=== PATIENT | male | born 1955 | race Native Hawaiian/Other Pacific Islander ===

== ENCOUNTER 2018-05-21 06:44 | Day surgery (SDC) | payer BC ==
[2018-05-19 09:17] VITALS: BMI 26.6
[~2018-05-21 06:44] MED LIST: HYDROmorphone 0.5 MG/0.5 ML SYRINGE IVP PRN; LACTATED RINGERS 1,000 ML IV SCH; LIDOCAINE 1% 20 ML VIAL (10MG/ML) FOR IV START INTRADERMA PRN; MIDAZOLAM 2 MG/2 ML VIAL IV PRN
[2018-05-21 07:12] VITALS: RESP 16; TEMP 98.1
[2018-05-21] MEDS ORDERED: PROPOFOL 10 MG/ML 20 ML VIAL IV ONE (07:53)
--- NOTE | 2018-05-21 07:59 | P.GSHP ---
History of Present Illness H&P Date: 05/21/18 Chief Complaint: Screening colonoscopy This is a 62-year-old male who presents today for screening colonoscopy. He denies any significant GI complaints. Presents today for screening colonoscopy. His last colonoscopy was over 20 years ago. Past Medical History Past Medical History: Hypertension Additional Past Medical History / Comment(s): gout, History of Any Multi-Drug Resistant Organisms: None Reported Past Surgical History: Orthopedic Surgery Additional Past Surgical History / Comment(s): rt shoulder rotator cuff, Past Anesthesia/Blood Transfusion Reactions: No Reported Reaction Smoking Status: Current some day smoker - Past Family History Mother Family Medical History: No Reported History Medications and Allergies Home Medications Medication Instructions Recorded Confirmed Type Lisinopril [Zestril] 5 mg PO DAILY 05/19/18 05/21/18 History amLODIPine BESYLATE [Norvasc] 5 mg PO QAM 05/19/18 05/21/18 History Allergies Allergy/AdvReac Type Severity Reaction Status Date / Time No Known Allergies Allergy Verified 05/19/18 09:10 Surgical - Exam Vital Signs Temp Pulse Resp BP Pulse Ox 98.1 F 60 16 149/80 98 05/21/18 07:08 05/21/18 07:08 05/21/18 07:08 05/21/18 07:08 05/21/18 07:08 - General well developed, no distress - Eyes PERRL - ENT normal pinna - Neck no masses - Respiratory normal expansion - Cardiovascular Rhythm: regular - Abdomen Abdomen: soft, non tender Assessment and Plan Assessment: We'll perform screening colonoscopy.
--- NOTE | 2018-05-21 08:13 | P.OP ---
Date of Procedure: 05/21/18 Preoperative Diagnosis: Screening colonoscopy Postoperative Diagnosis: Transverse colon polyp Procedure(s) Performed: Colonoscopy Anesthesia: MAC Surgeon: Calin Leavitt Pathology: other (Transverse colon polyp) Condition: stable Disposition: PACU Description of Procedure: Patient's placed on the endoscopy table in the lateral position. He received IV sedation. Digital rectal exam was performed which revealed no ebonized. The flexor colonoscope was then placed patient anus passed throughout the entire colon. The ileocecal valve sutures. The cecum, ascending colon appeared normal. In the transverse colon there is a small sessile polyp. This removed the forcep. Scope was withdrawn remainder the descending and sigmoid colon appeared normal. Scope was brought back the rectum and this appeared normal. Scope was withdrawn for patient.
[2018-05-21 08:42] VITALS: BP 151/81; PULSE 63
== END 2018-05-21 08:55 | disposition home or self-care (01) ==
LOC: ORWHC2ENDO 06:44
PROVIDERS: ATTEND Surgery
DX: Z12.11 Encounter for screening for malignant neoplasm of colon (principal); D12.3 Benign neoplasm of transverse colon; I10 Essential (primary) hypertension; M10.9 Gout, unspecified; F17.200 Nicotine dependence, unspecified, uncomplicated; Z79.899 Other long term (current) drug therapy
CPT/HCPCS: 88305; 45380; J2704

== ENCOUNTER → 2021-12-27 | Outpatient (CLI) | payer MEDICARE ==
--- NOTE | 2021-12-29 03:26 | MR ---
EXAMINATION TYPE: MR shoulder LT wo con DATE OF EXAM: 12/27/2021 COMPARISON: None HISTORY: Left shoulder pain for 4 weeks due to fall. Multiplanar multiecho imaging of the left shoulder without contrast. There is moderate shoulder joint effusion. There is fluid around the biceps tendon. Subscapularis ten don is intact. The glenoid jose luis appear intact. No evidence of a fracture. There is large rotator cuf f tear with retraction of the supraspinatus tendon. There is subdeltoid effusion. There is spurring a t the AC joint. IMPRESSION: Very large rotator cuff tear with retraction of the supraspinatus tendon. Large joint effusion.
== END | disposition home or self-care (01) ==
LOC: RADMRIMAIN 10:55
PROVIDERS: ATTEND Orthopaedic Surgery
DX: S46.012A Strain of muscle(s) and tendon(s) of the rotator cuff of left shoulder, initial encounter (principal); W19.XXXA Unspecified fall, initial encounter

== ENCOUNTER → 2022-01-25 | Outpatient (CLI) | payer MEDICARE ==
--- NOTE | 2022-01-25 11:02 | CA ---
Transthoracic Echo Report Name: Quique Smith Age: 66 Gender: M : 1955 Exam Date: 01/25/2022 09:12 Exam Location: [facility] Ht (in): 66 Wt (lb): 170 Ordering Physician: Alex Muniz DO Attending/Referring Phys: Alex Muniz DO Hand Blocker Kath Merino, [facility] Procedure CPT: Indications: I10 R07.89 Z01.818 Cardiac Hx: Technical Quality: Good Contrast 1: Total Dose (mL): Contrast 2: Total Dose (mL): MEASUREMENTS (Male / Female) Normal Values 2D ECHO LV Diastolic Diameter PLAX 4.3 cm 4.2 - 5.9 / 3.9 - 5.3 cm LV Systolic Diameter PLAX 3.0 cm IVS Diastolic Thickness 1.4 cm 0.6 - 1.0 / 0.6 - 0.9 cm LVPW Diastolic Thickness 1.4 cm 0.6 - 1.0 / 0.6 - 0.9 cm LV Relative Wall Thickness 0.6 RV Internal Dim ED PLAX 3.2 cm LVOT Diameter 2.2 cm LA Systolic Diameter LX 4.1 cm 3.0 - 4.0 / 2.7 - 3.8 cm LA Volume 44.9 cm??? 18 - 58 / 22 - 52 cm??? M-MODE Aortic Root Diameter MM 3.9 cm MV E Point Septal Separation 1.3 cm AV Cusp Separation MM 2.2 cm DOPPLER AV Peak Velocity 125.4 cm/s AV Peak Gradient 6.3 mmHg MV Area PHT 2.5 cm??? Mitral E Point Velocity 60.5 cm/s Mitral A Point Velocity 70.2 cm/s Mitral E to A Ratio 0.9 MV Deceleration Time 309.6 ms MV E' Velocity 3.8 cm/s Mitral E to MV E' Ratio 16.0 TR Peak Velocity 206.0 cm/s TR Peak Gradient 17.0 mmHg Right Ventricular Systolic Press 22.0 mmHg FINDINGS Left Ventricle Left ventricular ejection fraction is estimated at 55-60 %. Left ventricular cavity size normal. Moderate concentric left ventricular hypertrophy. Right Ventricle Normal right ventricular size and function. Right ventricular systolic pressure within normal limits. Right Atrium Normal right atrial size. Left Atrium Normal left atrial size. No evidence for an atrial septal defect. Mitral Valve Mitral annular calcification. Trace mitral regurgitation. No mitral stenosis, regurgitation or prolapse. Aortic Valve Trileaflet aortic valve. No aortic valve stenosis or regurgitation. Focal thickening of the aortic valve cusps. Tricuspid Valve Mild tricuspid regurgitation. Pulmonic Valve Structurally normal pulmonic valve. No pulmonic regurgitation. Pericardium Normal pericardium. Aorta Moderate aortic dilatation at the level of the sinuses of valsalva 41 mm CONCLUSIONS #1. Left ventricular size is normal with preserved LV function. #2. Mild tricuspid regurgitation. #3. Aortic root dilatation measuring about 1.1 cm Previewed by: Dr. Edith Loza MD (Electronically Signed) Final Date: 25 January 2022 11:01
--- NOTE | 2022-01-25 11:47 | CA ---
Exercise Stress Test Report Name: Quique Smith Exam Date: 01/25/2022 10:34 Exam Location: [facility] Stress Ht (in): 66 Wt (lb): 170 BSA: 1.87 Ordering Phys: Alex Muniz DO Referring Phys: Alex Muniz DO Technologist: Matthew Tavares Age: 66 Gender: M : 1955 Procedure CPT: Indications: I10 R07.89 Z01.818 ICD-10 Codes: Patient History: Abnormal EKG, Hypertension Medications: Meds past 24 hrs: Pretest Chest Pain: STRESS TEST Brandon Protocol Exercise Duration (min:sec): 04:[address] Depressions (mm): Angina Score: Sal Score: Resting HR (bpm): 67 Peak HR (bpm): 135 Resting BP (mmHg): 110 / 81 Peak BP (mmHg): 171 / 74 MPHR: 153 Target HR: 130 % MPHR: 88 METS: 7.1 Total Dose: Peak Dose: Atropine: Double Product: 50819 BP Response: Stress Termination: Reached target heart rate Stress Symptoms: No chest pain or symptoms Stress Summary: ECG ANALYSIS Resting ECG: Sinus rhythm with right bundle-branch block Stress ECG: Sinus tachycardia with a right bundle branch block without any significant changes from baseline CONCLUSIONS #1. Ruby stress test. #2. Baseline EKG showed right bundle-branch block. #3. Patient did not experience any chest pain. #4. No arrhythmias noted Dr. Edith Loza MD (Electronically Signed) Final Date: 25 January 2022 11:46
--- NOTE | 2022-01-25 16:55 | NM ---
EXAMINATION TYPE: NM stress cardiolite complete DATE OF EXAM: 01/25/2022 COMPARISON: 10/23/2015 HISTORY: 66-year-old male I10, R07.89, Z01.818. Abnormal EKG. TECHNIQUE: After the intravenous administration of 10.2 mCi Tc 99m Sestamibi - Rest images obtained 55 minutes post injection. The patient exercised using a LUCY protocol and 1 minute prior to peak exercise was injected with 26.4 mCi Tc 99m Sestamibi - Stress images obtained 25 minutes post injecti on. FINDINGS: Targeted heart rate 130 BPM. Heart rate achieved during the study 135 BPM. Total exercise time 4 luis daniel marjorie 30 seconds. Heart target heart rate was achieved during performance of the study. Review of stres s and rest SPECT images demonstrates no distinct perfusion abnormality. Gated analysis shows normal wall motion with an estimated left ventricular ejection fraction of 64 %. TID is calculated normal a t 0.89. IMPRESSION: No scintigraphic evidence for reversible ischemia
== END | disposition home or self-care (01) ==
LOC: RADNMMAIN 08:40
PROVIDERS: ATTEND Family Medicine
DX: Z01.818 Encounter for other preprocedural examination (principal); I10 Essential (primary) hypertension; I08.3 Combined rheumatic disorders of mitral, aortic and tricuspid valves
CPT/HCPCS: 93017; 93306; 78452; A9500

== ENCOUNTER → 2022-01-31 | Outpatient (CLI) | payer MEDICARE ==
[2022-01-31 13:04] LABS: Basophils # (A) 0.1 k/uL (0-0.2); Basophils % (A) 1 %; Eosinophils # (A) 0.1 k/uL (0-0.7); Eosinophils % (A) 1 %; Lymphocytes % (A) 16 %; MCH 34.1 pg (25.0-35.0); MCHC 34.1 g/dL (31.0-37.0); MCV 99.7 fL (80.0-100.0); Macrocytosis Slight; Monocytes # (A) 0.5 k/uL (0-1.0); Monocytes % (A) 8 %; Neutrophils # (A) 4.3 k/uL (1.3-7.7); Neutrophils % (A) 70 %; Platelet Count 233 k/uL (150-450); RBC 4.71 m/uL (4.30-5.90); RDW 14.8 % (11.5-15.5); WBC 6.1 k/uL (3.8-10.6)
[2022-01-31 13:05] LABS: African American GFR (CKD) >90 (>60 ml/min/1.73 sqM); Anion Gap 7 mmol/L; Blood Urea Nitrogen 7 mg/dL (9-20); Calcium 9.3 mg/dL (8.4-10.2); Carbon Dioxide 32 mmol/L (22-30); Chloride 99 mmol/L (98-107); Glucose 97 mg/dL (74-99); Non-African American GFR(CKD) 90 (>60 ml/min/1.73 sqM); Potassium 4.4 mmol/L (3.5-5.1); Sodium 138 mmol/L (137-145)
== END | disposition home or self-care (01) ==
LOC: LABWHC1 11:52
PROVIDERS: ATTEND Family Medicine
DX: Z01.812 Encounter for preprocedural laboratory examination (principal); I10 Essential (primary) hypertension
CPT/HCPCS: 36415; 80048; 85025

== ENCOUNTER 2022-02-01 05:56 | Day surgery (SDC) | payer MEDICARE ==
--- NOTE | 2022-01-31 10:48 | HP ---
HISTORY AND PHYSICAL CHIEF COMPLAINT: Left shoulder pain. HISTORY OF PRESENT ILLNESS: Patient is a 66-year-old retired [id number] gentleman who presents with left shoulder pain after an injury 11/26/2021. He fell down his basement stairs landing on his shoulder. He notes pain, weakness, and soreness ever since. It has been bothering him with any overhead motion along with significantly at night. He denies previous problems. PAST MEDICAL HISTORY: Significant for hypertension. PAST SURGICAL HISTORY: Significant for right shoulder arthroscopy. CURRENT MEDICATIONS: Amlodipine b.i.d., Bisoprolol, lisinopril and Tylenol. ALLERGIES: He denies drug allergies. FAMILY HISTORY: Significant for lupus, rheumatoid arthritis, stroke, hypertension. SOCIAL HISTORY: Significant for social alcohol use. REVIEW OF SYSTEMS: 16-point review of systems otherwise reviewed and is noncontributory. PHYSICAL EXAMINATION: On examination, the patient is approximately 5 foot 6, 170 pounds of mesomorphic habitus. HEENT exam is nonfocal. Neck is supple. On examination of his left shoulder, he has mild anterior swelling. He is tender about the anterior subacromial space and bicipital groove. He has moderate crepitus. Active range of motion: Forward elevation 90 degrees, external rotation, arm at side 50 degrees, internal rotation to L2. Motor strength 4- over 5 for external rotation with the arm at side, 3+ over 5 for abduction. Impingement test, Neer tests, and Speed test are positive. His distal neurovascular exam appears intact in left upper extremity. MRI report left shoulder 12/27/2021 shows a large retracted rotator cuff tear without definite muscular atrophy. IMPRESSION: Acute left rotator cuff tear. RECOMMENDATIONS: I talked to the patient at length regarding his condition along with treatment options. At this point, he has profound weakness and pain after this acute injury. After thorough discussion, he opts to proceed with surgery. We will plan to proceed with arthroscopic evaluation with probable subacromial decompression and rotator cuff repair. We will consider biceps tenotomy if significant bicipital pathology is noted. We will likely perform that as an outpatient procedure. MMODL / IJN: [id number] /
[2022-01-31 11:11] VITALS: BMI 27.4
[2022-02-01] MEDS ORDERED: ONDANSETRON 4 MG/2 ML VIAL ONE (06:44)
[2022-02-01] MEDS ORDERED: LACTATED RINGERS 1,000 ML IV ONE ×3 (07:06→09:02)
[2022-02-01] MEDS ORDERED: ONDANSETRON 4 MG/2 ML VIAL IVP ONE ×2 (07:06→07:37)
[2022-02-01] MEDS ORDERED: DEXAMETHASONE SOD PHOSPHATE 4 MG/ML 1 ML VIAL IVP ONE (07:06)
[2022-02-01] MEDS ORDERED: MIDAZOLAM 2 MG/2 ML VIAL IVP ONE (07:11)
[2022-02-01] MEDS ORDERED: DEXAMETHASONE SOD PHOSPHATE 4 MG/ML 1 ML VIAL IV ONE (07:37)
[2022-02-01] MEDS ORDERED: MIDAZOLAM 2 MG/2 ML VIAL IV PRN (07:37)
[2022-02-01] MEDS ORDERED: LIDOCAINE 1% (10MG/ML) FOR IV START INTRADERMA PRN (07:37)
[2022-02-01] MEDS ORDERED: LACTATED RINGERS 1,000 ML IV SCH (07:37)
[2022-02-01] MEDS ORDERED: HYDROmorphone 0.5 MG/0.5 ML SYRINGE IVP PRN (07:37)
[2022-02-01] MEDS ORDERED: ROPIVACAINE 5 MG/ML 30 ML VIAL ONE (07:40)
[2022-02-01] MEDS ORDERED: DEXAMETHASONE SOD PHOSPHATE 4 MG/ML 1 ML VIAL ONE (07:40)
[2022-02-01] MEDS ORDERED: PHENYLEPHRINE-0.9% NACL SYG 1,000 MCG/10 ML SYRINGE ONE (07:40)
[2022-02-01] MEDS ORDERED: KETOROLAC 15 MG/ML 1 ML VIAL ONE (07:40)
[2022-02-01] MEDS ORDERED: PROPOFOL 10 MG/ML 20 ML VIAL IV ONE (07:40)
[2022-02-01] MEDS ORDERED: ROCURONIUM 10 MG/ML (5 ML VIAL) IV ONE (07:40)
[2022-02-01] MEDS ORDERED: LIDOCAINE 2% INJ 20 MG/ML (2 ML VIAL) ONE (07:40)
[2022-02-01] MEDS ORDERED: SUCCINYLCHOLINE CHLORIDE 100 MG/5 ML SYR IV ONE (07:40)
[2022-02-01] MEDS ORDERED: GLYCOPYRROLATE 0.2 MG/ML 2 ML VIAL ONE (07:40)
[2022-02-01] MEDS ORDERED: NEOSTIGMINE 1 MG/ML 10 ML VIAL ONE (07:40)
[2022-02-01] MEDS ORDERED: EPINEPHrine (PF) 1 ML in SODIUM CHLORIDE 0.9% IRRIGATIO 3,000 ML IRRIGATION ONE ×8 (07:45)
--- NOTE | 2022-02-01 09:56 | P.OP ---
Date of Procedure: 02/01/22 Preoperative Diagnosis: Left large rotator cuff tearretracted Postoperative Diagnosis: Same in addition to high-grade partial-thickness tear intra-articular portion long head of the biceps Procedure(s) Performed: Left shoulder arthroscopic subacromial decompression/biceps tenotomy/rotator cuff repair Implants: Arthrex 4.75 mm swivel lock anchor 3, 5.5 mm swivel lock anchor 1 Anesthesia: LEILAA, regional Surgeon: Sunday Watkins Irrigating Pump Operator #1: Saji Marsh Estimated Blood Loss (ml): 10 Pathology: none sent Condition: stable Disposition: PACU Indications for Procedure: The patient's 66-year-old male who presents with left shoulder pain after a recent injury. Upon evaluation and by MRI he was noted significant rotator cuff tear with retraction. A discussion of the risks and benefits of operative intervention versus conservative measures made with patient. He opted to proceed with surgery. Operative risks to include infection, neurovascular injury, development of blood clots, possible tendon rerupture, possible posto perative stiffness and need for subsequent procedures was discussed. Informed consent was obtained. Operative Findings: As below Description of Procedure: The patient was brought to the operating room, and after induction of general anesthesia was placed in a beachchair position. A preoperative interscalene block was placed for postoperative analgesia. I examined the left shoulder. There was no gross block to passive motion or gross glenohumeral instability. The left upper extremity was prepped and draped in normal fashion. The bony o utlines the acromion, distal clavicle, and coracoid process were outlined with a skin marker. The glenohumeral joint was inflated with 50 mL of saline utilizing a spinal needle from posterior approach. A posterior portal was made through a 5 mm skin incision 1 cm medial and inferior to the posterior lateral border time. A blunt trocar was used to easily into the joint. Diagnostic arthroscopy was performed. An anterior portal was made just lateral to the coracoid process entering the joint above the subscapularis tendon. The subscapularis tendon appeared to be intact. Anterior labrum was intact. The inferior recess was inspected. The posterior labrum was intact. There was a high-grade partial- thickness tear of the long head of the biceps involving interarticular portion. It was elected to proceed with release at this point. This was released from the superior labrum with electrocautery and was allowed to retract to the bicipital groove. On inspection the rotator cuff, a large retracted tear involving the supraspinatus and infraspinatus was noted retracted almost level the glenoid. The arthroscope was placed into the subacromial space. A lateral portal was made 2 centimeters inferior to the anterior lateral border of the acromion. The rotator cuff was then mobilized with multiple traction sutures. This was then brought back to the greater tuberosity. The soft tissue on the undersurface of the acromion was debrided with a motorized shaver and electrocautery clearly defining the anterior medial and lateral borders as well as the distal clavicle. An anterior inferior acromioplasty was performed with a motorized luh starting anterolateral, then extending this posteriorly, then extending this medially. I converted to a flat acromion and this was verified in the posterior and lateral viewing portals. The greater tuberosity was lightly decorticating with a shaver down to a bleeding bony surface. An accessory superior lateral portals made just off the lateral edge of the acromion for anchor placement. 2 anchors were then placed just off the articular surface with the appropriate starting awl. 4.75 mm anchors preloaded with #2 fiber tape were placed. Good purchase was obtained. These fiber tapes were then passed the rotator cuff with a scorpion suture passer. A lateral row was created crisscrossing these tapes. A 4.75 mm and 5.5 mm swivel lock anchor was then placed laterally crisscrossing these sutures compressing the tissue. Good purchase was obtained. Final arthroscopic view showed adequate compression at the footprint. The anterior portion of the rotator cuff was retracted and not repairable. The arthroscope was then removed. The portals were closed with simple 3-0 nylon sutures. A sterile dressing was applied in addition to an abductor brace. The patient was then awoken from general anesthesia and transferred to recovery room in good condition. Blood loss was estimated at 10 mL. No complications were incurred. Sponge and needle counts were correct in the case. Saji WILSON assisted and the major components of the case to include arm positioning, anchor placement, and rotator cuff repair.
[2022-02-01 10:08] VITALS: TEMP 97.1
[2022-02-01 11:01] VITALS: RESP 18
[2022-02-01 11:41] VITALS: BP 126/86; PULSE 53
--- NOTE | 2022-02-02 18:38 | P.ANPRN ---
Procedure Note - Anesthesia - Nerve Block Performed Left Interscalene Single Time Out Performed: Yes Date of Procedure: 02/01/22 Procedure Start Time: 07:10 Procedure Stop Time: 07:14 Location of Patient: PreOp Indication: Acute Post-Operative Pain, Requested by Surgeon Sedation Type: Sedate with meaningful contact maintained Preparation: Sterile Prep Position: Supine Needle Types: Pajunk Needle Gauge: 21 Ultrasound used to visualize needle placement: Yes Ultrasound used to observe medication spread: Yes Blood Aspirated: No Pain Paresthesia on Injection Noted: No Resistance on Injection: Normal Image Stored and Saved: Yes Events: Uneventful and Well Tolerated (ROPI .5% 20CC PLUS DEXAMETHASONE 4MG)
== END 2022-02-01 11:57 | disposition home or self-care (01) ==
LOC: OR 05:56
PROVIDERS: ATTEND Orthopaedic Surgery
DX: S46.012A Strain of muscle(s) and tendon(s) of the rotator cuff of left shoulder, initial encounter (principal); W10.9XXA Fall (on) (from) unspecified stairs and steps, initial encounter; I10 Essential (primary) hypertension; F17.200 Nicotine dependence, unspecified, uncomplicated; Z98.890 Other specified postprocedural states; Z82.61 Family history of arthritis; Z82.3 Family history of stroke; Z82.49 Family history of ischemic heart disease and other diseases of the circulatory system; Z82.69 Family history of other diseases of the musculoskeletal system and connective tissue; Z79.899 Other long term (current) drug therapy
CPT/HCPCS: 64415; 76942; 29826; 29827; C1713 ×3; C1894; J2250; J1100; J2710; J0690; J2405; J0171; J2795; J1885; J2370; J0330; J2704; J2001

== ENCOUNTER 2022-08-09 12:46 | Emergency (ER) | payer MEDICARE ==
[2022-08-09 12:52] VITALS: TEMP 98.5
[2022-08-09] MEDS ORDERED: ACETAMINOPHEN TAB 500 MG TAB PO STA (13:02)
--- NOTE | 2022-08-09 13:11 | ED ---
Fall HPI - General Chief Complaint: Fall Stated Complaint: fall - lt side pain Time Seen by Provider: 08/09/22 12:53 Source: patient, family, RN notes reviewed Mode of arrival: ambulatory - History of Present Illness Initial Comments: This is a 66-year-old male who presents to the emergency department for a fall. 2 days ago, he was on his roof above the garage. States that he tripped and stumbled over some wire, and subsequently fell on the ground. He was walking around when his saw him, however the fall itself was not witnessed. It is unclear if he had any loss of consciousness. He is not on any blood thinners. Currently complaining of pain in the lower back, more so on the left side and pain with inhalation. However, the extent of his injuries is not entirely clear. His family believes that the fall was from about 10 feet. His states that over the last couple of days he has started to get weaker than normal and is complaining of increased pain. Denies any fevers, chills, sore throat, cough, chest pain, palpitations, abdominal pain, nausea, vomiting, diarrhea, or headaches. MD Complaint: fall Onset/Timin -: days(s) Fall Witnessed: no Place Fall Occurred: home Loss of Consciousness: unsure Prolonged Down Time?: unclear Symptoms Prior to Fall: none - Related Data Home Medications Medication Instructions Recorded Confirmed amLODIPine BESYLATE [Norvasc] 5 mg PO QAM 05/19/18 02/01/22 lisinopriL [Zestril] 5 mg PO DAILY 05/19/18 02/01/22 Bisoprolol-Hctz 5-6.25 mg [Ziac 1 tab PO DAILY 01/31/22 02/01/22 5-6.25 MG] Previous Rx's Medication Instructions Recorded HYDROcodone/APAP 7.5-325MG [[place] 1 each PO Q6HR PRN #28 tab 02/01/22 7.5] Allergies Allergy/AdvReac Type Severity Reaction Status Date / Time No Known Allergies Allergy Verified 08/09/22 12:52 Review of Systems ROS Statement: Those systems with pertinent positive or pertinent negative responses have been documented in the HPI. ROS Other: All systems not noted in ROS Statement are negative. Past Medical History Past Medical History: Hypertension Additional Past Medical History / Comment(s): gout, History of Any Multi-Drug Resistant Organisms: None Reported Past Surgical History: Orthopedic Surgery Additional Past Surgical History / Comment(s): rt shoulder rotator cuff, Past Anesthesia/Blood Transfusion Reactions: No Reported Reaction Past Psychological History: No Psychological Hx Reported Smoking Status: Never smoker Past Alcohol Use History: Daily Past Drug Use History: None Reported - Past Family History Mother Family Medical History: No Reported History General Exam Limitations: no limitations General appearance: alert, in no apparent distress Head exam: Present: atraumatic, normocephalic, normal inspection Respiratory exam: Present: normal lung sounds bilaterally. Absent: respiratory distress, wheezes, rales, rhonchi, stridor Cardiovascular Exam: Present: regular rate, normal rhythm, normal heart sounds. Absent: systolic murmur, diastolic murmur, rubs, gallop, clicks GI/Abdominal exam: Present: other (Somewhat firm) Extremities exam: Present: normal inspection Back exam: Present: normal inspection, tenderness (Lower lumbar spine, spinal and paraspinal) Neurological exam: Present: alert, oriented X3, CN II-XII intact Psychiatric exam: Present: normal affect, normal mood Skin exam: Present: warm, dry, intact, normal color. Absent: rash Course Vital Signs 08/09/22 08/09/22 08/09/22 12:49 15:02 15:44 Temperature 98.5 F Pulse Rate 72 74 59 L Respiratory 20 18 18 Rate Blood Pressure 94/60 85/52 95/61 O2 Sat by Pulse 99 95 95 Oximetry Medical Decision Making - Medical Decision Making This is a 66-year-old male who presents to the emergency department for a fall. Was pt. sent in by a medical professional or institution? @ -No Did you speak to anyone other than the patient for history? @ -His and son Did you review nursing and triage notes? @ -Agree, accurate with regards to the patient's symptoms. Were old charts reviewed? @ -No Differential Diagnosis? @ -Abdominal trauma such as SMA rupture, bowel perforation, rib fractures, cervical, thoracic, or lumbar spine fractures, hip fracture, and pelvic fracture. This is not meant to be an all inclusive list. CT interpreted by me (1pt min.)? @ -My interpretation of the computed tomography scan reveals an area of swelling consistent with a hematoma in the duodenal region. There also appears to be left-sided rib and left-sided lumbar transverse process fractures. Computed tomography scan of the brain and C-spine reveal no acute fractures or intracranial hemorrhage. Computed tomography scan of the bilateral femurs reveals no acute fractures or dislocations. What testing was considered but not performed? (CT, X-rays, U/S, labs)? Why? @ -Originally considered getting x-rays, however given that this was a fall from 10 feet and not witnessed, and because the patient is having some difficulty describing his pain, the decision was made to instead get a computed tomography scan from the brain down to the femurs for better evaluation. What meds were considered but not given? Why? @ -I offered pain medication aside from the Tylenol, however the patient declined. Did you discuss the management of the patient with other professionals? @ -I spoke with on-call general surgery, Dr. Leavitt, who advised that the patient needs to be transferred to a facility with gastroenterology available due to the duodenal hematoma. Did you reconcile home meds? @ -No Was smoking cessation discussed for >3mins.? @ -No Was critical care preformed (if so, how long)? @ -No Were there social determinants of health that impacted care today? How? (Homelessness, low income, unemployed, alcoholism, drug addiction, transportation, low edu. Level, literacy, decrease access to med. care, longterm, rehab)? @ -No Was there de-escalation of care discussed even if they declined? (Discuss DNR or withdrawal of care, Hospice)? @ -No What co-morbidities impacted this encounter? (DM, HTN, Smoking, COPD, CAD, Cancer, CVA, Hep., AIDS, mental health diagnosis, sleep apnea, morbid obesity)? @ -Hypertension Was patient admitted / discharged? @ -In discussion with the patient and his , because this is a fall from several feet and was unwitnessed, computed tomographys scan of the brain/C- spine, chest, abdomen, pelvis, and bilateral femurs were obtained. Tylenol administered for pain. Multiple acute injuries were noted on the computed tomography scan of the chest, abdomen, and pelvis. There is a 10 x 10 cm duodenal/periduodenal hematoma. There are also lumbar left-sided transverse process fractures of L1 through L4 and left rib fractures of 9 through 11. I spoke with Dr. Leavitt, on-call general surgery. He advised that because we do not have gastroenterology available, the patient will need to be transferred out for the duodenal/periduodenal hematoma. Baseline lab work was obtained based on these findings. He does have leukocytosis with a lower hemoglobin level of 11.7. However, he started to become hypotensive with a blood pressure in the high 80s systolically. He was subsequently given a liter bolus of normal saline. Patient accepted as a transfer to [facility] for non-activated trauma. Drug Therapy requiring intensive monitoring for toxicity (Heparin, Nitro, Insulin, Cardizem)? @ -None Were any procedures done? @ -None Diagnosis/symptom? @ -Duodenal/periduodenal hematoma Acute, or Chronic, or Acute on Chronic? @ -Acute Uncomplicated (without systemic symptoms) or Complicated (systemic symptoms)? @ -Complicated, patient is feeling weak, and his states that he seems somewhat more drowsy and lethargic than normal. Side effects of treatment? @ -Patient transfer to [facility] for treatment. Exacerbation, Progression, or Severe Exacerbation] @ -Not applicable Poses a threat to life or bodily function? @ -Yes, can lead to obstruction and perforation. Diagnosis/symptom? @ -Left-sided rib fractures Acute, or Chronic, or Acute on Chronic? @ -Acute Uncomplicated (without systemic symptoms) or Complicated (systemic symptoms)? @ -Complicated, he is experiencing difficulty breathing due to the pain. Side effects of treatment? @ -Patient transfer to [facility] for treatment. Exacerbation, Progression, or Severe Exacerbation] @ -Not applicable Poses a threat to life or bodily function? @ -Causes difficulty with breathing, which can subsequently lead to pneumonia. Diagnosis/symptom? @ -Left-sided transverse process fractures of lumbar spine. Acute, or Chronic, or Acute on Chronic? @ -Acute Uncomplicated (without systemic symptoms) or Complicated (systemic symptoms)? @ -Not exhibiting any systemic symptoms at this time. Side effects of treatment? @ -Transferred to [facility] for treatment. Exacerbation, Progression, or Severe Exacerbation] @ -Not applicable Poses a threat to life or bodily function? @ -Limits bodily function in terms of pain. This case was discussed in detail with the attending ED physician. Presentation, findings, and treatment plan discussed in detail as well. - Lab Data Result diagrams: 08/09/22 14:32 08/09/22 14:32 Lab Results 08/09/22 08/09/22 08/09/22 Range/Units 14:32 14:32 14:32 WBC 15.4 H (3.8-10.6) k/uL RBC 3.37 L (4.30-5.90) m/uL Hgb 11.7 L (13.0-17.5) gm/dL Hct 33.5 L (39.0-53.0) % MCV 99.6 (80.0-100.0) fL MCH 34.9 (25.0-35.0) pg MCHC 35.1 (31.0-37.0) g/dL RDW 11.9 (11.5-15.5) % Plt Count 242 (150-450) k/uL MPV 9.4 Neutrophils % 81 % Lymphocytes % 9 % Monocytes % 8 % Eosinophils % 1 % Basophils % 0 % Neutrophils # 12.5 H (1.3-7.7) k/uL Lymphocytes # 1.3 (1.0-4.8) k/uL Monocytes # 1.2 H (0-1.0) k/uL Eosinophils # 0.1 (0-0.7) k/uL Basophils # 0.1 (0-0.2) k/uL PT 10.7 (9.0-12.0) sec INR 1.0 (<1.2) APTT 31.3 H (22.0-30.0) sec Sodium 132 L (137-145) mmol/L Potassium 4.8 (3.5-5.1) mmol/L Chloride 98 (98-107) mmol/L Carbon Dioxide 24 (22-30) mmol/L Anion Gap 10 mmol/L BUN 42 H (9-20) mg/dL Creatinine 1.50 H (0.66-1.25) mg/dL Est GFR (CKD-EPI)AfAm 55 (>60 ml/min/1.73 sqM) Est GFR (CKD-EPI)NonAf 48 (>60 ml/min/1.73 sqM) Glucose 99 (74-99) mg/dL Calcium 9.4 (8.4-10.2) mg/dL Total Bilirubin 2.1 H (0.2-1.3) mg/dL AST 75 H (17-59) U/L ALT 51 H (4-49) U/L Alkaline Phosphatase 97 (38-126) U/L Total Protein 7.9 (6.3-8.2) g/dL Albumin 4.4 (3.5-5.0) g/dL Blood Type Blood Type Recheck Bld Type Recheck Status Antibody Screen Spec Expiration Date 08/09/22 Range/Units 14:32 WBC (3.8-10.6) k/uL RBC (4.30-5.90) m/uL Hgb (13.0-17.5) gm/dL Hct (39.0-53.0) % MCV (80.0-100.0) fL MCH (25.0-35.0) pg MCHC (31.0-37.0) g/dL RDW (11.5-15.5) % Plt Count (150-450) k/uL MPV Neutrophils % % Lymphocytes % % Monocytes % % Eosinophils % % Basophils % % Neutrophils # (1.3-7.7) k/uL Lymphocytes # (1.0-4.8) k/uL Monocytes # (0-1.0) k/uL Eosinophils # (0-0.7) k/uL Basophils # (0-0.2) k/uL PT (9.0-12.0) sec INR (<1.2) APTT (22.0-30.0) sec Sodium (137-145) mmol/L Potassium (3.5-5.1) mmol/L Chloride (98-107) mmol/L Carbon Dioxide (22-30) mmol/L Anion Gap mmol/L BUN (9-20) mg/dL Creatinine (0.66-1.25) mg/dL Est GFR (CKD-EPI)AfAm (>60 ml/min/1.73 sqM) Est GFR (CKD-EPI)NonAf (>60 ml/min/1.73 sqM) Glucose (74-99) mg/dL Calcium (8.4-10.2) mg/dL Total Bilirubin (0.2-1.3) mg/dL AST (17-59) U/L ALT (4-49) U/L Alkaline Phosphatase (38-126) U/L Total Protein (6.3-8.2) g/dL Albumin (3.5-5.0) g/dL Blood Type O Positive Blood Type Recheck No Previous Record Bld Type Recheck Status CABO Indicated Antibody Screen NEGATIVE Spec Expiration Date 08/12/20222331 - Radiology Data Radiology results: report reviewed, image reviewed Disposition Clinical Impression: Hematoma of duodenum, Fracture of transverse process of lumbar vertebra, Mult iple fractures of ribs, left side, initial encounter for closed fracture Disposition: OTHER INSTITUTION NOT DEFINED Referrals: Alex Muniz Jr, [Primary Care Provider] - 1-2 days - Out of Hospital Transfer - Req. Specs Out of Hospital Transfer - Requested Specifics: Other Emergency Center ([facility])
--- NOTE | 2022-08-09 13:54 | CT ---
EXAMINATION TYPE: CT ChestAbdPelvis wo con DATE OF EXAM: 08/09/2022 COMPARISON: None HISTORY: fall off roof, back pain CT DLP: 874.[address] of the chest abdomen and pelvis was performed. The lack of contrast does limit evaluati on. Chest: LUNGS: There is no evidence for pneumothorax. The lungs are clear and free of focal contusion or ate lectasis. No pleural effusion. Parenchymal scarring noted within the upper lobes. MEDIASTINUM: Thoracic aorta is of normal caliber without CT evidence to suggest traumatic induced ao rtic injury. No mediastinal fluid or blood. No pericardial fluid or cardia abnormality. HILAR STRUCTURES: No evidence for mass. No hilar adenopathy is appreciated. OTHER: No significant abnormality. CT ABDOMEN AND PELVIS FINDINGS: LIVER/GB: No focal laceration, contusion or subcapsular hemorrhage. No calcified gallstones. No s pace occupying hepatic lesion. Biliary tree is of normal caliber. PANCREAS: No evidence for transection. No inflammation. No distinct mass. SPLEEN: No focal laceration, contusion or subcapsular hemorrhage. ADRENALS: No hemorrhage. No nodule. No thickening. KIDNEYS/BLADDER: No focal laceration, contusion or subcapsular hemorrhage. No hydronephrosis. No n ephrolithiasis. No distinct renal mass. BOWEL: There is a hematoma noted adjacent to the descending and transverse duodenum measuring 10.7 x 10.7 cm. There is associated stranding. SMA appears to be grossly intact. GENITAL ORGANS: No gross abnormality. LYMPH NODES: No greater than 1cm abdominal or pelvic lymph nodes are appreciated. AORTA: No traumatic aortic injury visualized. OSSEOUS STRUCTURES: Lumbar left-sided transverse process fractures extending from L1 through L4. Left -sided rib fractures of 9, 10 and 11. OTHER: No evidence for hemoperitoneum. IMPRESSION: 1. No evidence for pneumothorax or thoracic aortic injury. 2. Duodenal/periduodenal hematoma as discussed above. 3.Lumbar left-sided transverse process fractures extending from L1 through L4. Left-sided rib fractur es of 9, 10 and 11.
--- NOTE | 2022-08-09 13:57 | CT ---
EXAMINATION TYPE: CT brain dara dubon DATE OF EXAM: 08/09/2022 COMPARISON: None HISTORY: fall, no LOC CT DLP: 2758.[address] of the brain was performed. The ventricles, basal cisterns and sulci overlying the cerebral convexities demonstrate mild enlargem ent. There is no evidence for intracranial hemorrhage or sulcal effacement. There is decreased attenuatio n about the periventricular white matter and deep white matter of both cerebral hemispheres, compatib le with chronic small vessel ischemia. No mass effects are seen. If symptoms persist consider MRI. Osseous calvarium is intact. IMPRESSION: 1. Age related atrophic and chronic small vessel ischemic change without acute intracranial process seen at this time. CT Cervical Spine: Unenhanced CT of the cervical spine was performed with bone and soft tissue window settings submitted . Coronal and sagittal reconstruction is obtained. There is normal alignment and prevertebral soft tissues. No evidence for acute cervical fracture . Scattered degenerative disc disease and spondylosis. Biapical scarring. IMPRESSION: 1. No evidence for acute fracture or subluxation of the cervical spine.
[2022-08-09] MEDS ORDERED: LIDOCAINE 5% PATCH TOPICAL SCH (14:00)
--- NOTE | 2022-08-09 14:15 | CT ---
EXAMINATION TYPE: CT femur LT wo con DATE OF EXAM: 08/09/2022 COMPARISON: None HISTORY: fall off roof, back pain, Automated exposure control for dose reduction was used. Unenhanced CT of the left femur was bone and soft tissue window settings submitted. Imaging was performed at a separate workstation. FINDINGS: No evidence for fracture or dislocation. Soft tissues appear intact. Vascular calcifications identifi ed. IMPRESSION: NEGATIVE
--- NOTE | 2022-08-09 14:24 | CT ---
EXAMINATION TYPE: CT femur RT wo con DATE OF EXAM: 08/09/2022 COMPARISON: None HISTORY: fall off roof, back pain, Automated exposure control for dose reduction was used. Unenhanced CT of the right femur was performe d. Bone and soft tissue window settings are submitted. 3-D reconstruction is obtained at a separate w orkstation. FINDINGS: There is no fracture or dislocation seen. Soft tissues are grossly unremarkable. Joint spaces are wel l-preserved. IMPRESSION: NEGATIVE
[2022-08-09 14:49] LABS: Basophils # (A) 0.1 k/uL (0-0.2); Basophils % (A) 0 %; Eosinophils # (A) 0.1 k/uL (0-0.7); Eosinophils % (A) 1 %; HCT 33.5 % (39.0-53.0); HGB 11.7 gm/dL (13.0-17.5); Lymphocytes # (A) 1.3 k/uL (1.0-4.8); Lymphocytes % (A) 9 %; MCH 34.9 pg (25.0-35.0); MCHC 35.1 g/dL (31.0-37.0); MCV 99.6 fL (80.0-100.0); Mean Platelet Volume 9.4; Monocytes # (A) 1.2 k/uL (0-1.0); Monocytes % (A) 8 %; Neutrophils # (A) 12.5 k/uL (1.3-7.7); Neutrophils % (A) 81 %; Platelet Count 242 k/uL (150-450); RBC 3.37 m/uL (4.30-5.90); RDW 11.9 % (11.5-15.5); WBC 15.4 k/uL (3.8-10.6)
[2022-08-09] MEDS ORDERED: SODIUM CHLORIDE 0.9% 1,000 ML IV STA (14:58)
[2022-08-09 15:00] LABS: Albumin 4.4 g/dL (3.5-5.0); Calcium 9.4 mg/dL (8.4-10.2); Potassium 4.8 mmol/L (3.5-5.1); Total Bilirubin 2.1 mg/dL (0.2-1.3); Total Protein 7.9 g/dL (6.3-8.2)
[2022-08-09 15:01] LABS: Partial Thromboplastin Time 31.3 sec (22.0-30.0); Prothrombin Time 10.7 sec (9.0-12.0)
[2022-08-09 15:03] VITALS: RESP 18
[2022-08-09] MEDS ORDERED: HYDROmorphone 0.5 MG/0.5 ML SYRINGE IVP STA (15:38)
[2022-08-09] MEDS ORDERED: fentaNYL (PF) 50 MCG/ML 2 ML AMP IVP ONE (15:40)
[2022-08-09 15:45] VITALS: BP 95/61; PULSE 59
== END 2022-08-09 15:58 | disposition other institution (70) ==
LOC: EC 12:46
DX: S32.019A Unspecified fracture of first lumbar vertebra, initial encounter for closed fracture (principal); S32.029A Unspecified fracture of second lumbar vertebra, initial encounter for closed fracture; S32.039A Unspecified fracture of third lumbar vertebra, initial encounter for closed fracture; S32.049A Unspecified fracture of fourth lumbar vertebra, initial encounter for closed fracture; S32.059A Unspecified fracture of fifth lumbar vertebra, initial encounter for closed fracture; S22.42XA Multiple fractures of ribs, left side, initial encounter for closed fracture; S36.420A Contusion of duodenum, initial encounter; I10 Essential (primary) hypertension; W18.09XA Striking against other object with subsequent fall, initial encounter; Y93.01 Activity, walking, marching and hiking; Y92.094 Garage of other non-institutional residence as the place of occurrence of the external cause
CPT/HCPCS: 36415; 86900; 86901; 80053; 85025; 85610; 85730; 86850; 72125; 70450; 71250; 74176; 73700 ×2; 99284; 96374; 96375; 96361; J3010

== ENCOUNTER → 2022-11-06 | Outpatient (CLI) | payer MEDICARE ==
--- NOTE | 2022-11-07 07:46 | MR ---
EXAMINATION TYPE: MR abdomen wo/w con DATE OF EXAM: 11/06/2022 COMPARISON: CT abdomen and pelvis October 04, [address] August 09, 2022 HISTORY: Pancreatic mass. Prior abnormal CT. History of retroperitoneal hemorrhage related to trauma. CONTRAST: Standard multiplanar, multisequence MRI departmental protocol images were obtained without contrast a nd with 7.5 mL intravenous Gadavist gadolinium contrast. Imaging performed of the abdomen focusing o n the pancreas. FINDINGS: This exam is slightly suboptimal secondary to patient motion Pancreas: Pancreas remains overall normal in size without concerning solid or cystic mass. No ductal dilatation is seen. Along the inferior aspect of the pancreatic head there is persistent oval lesion with some adjacent smaller round lesions measuring 5.6 x 2.0 cm current study axial image 29 series 9 01, continued decrease in size from prior CTs showing T1 hyperintensity and fat saturated images and T2 hypointensity. Postcontrast imaging shows no suspicious enhancement or enhancing masses. Findings are consistent with continued resolving retroperitoneal hematoma. Other: There are numerous tiny gallstones within the gallbladder lumen. The liver, spleen, and both a drenal glands appear within normal limits. There is some cortical thinning in both kidneys without co ncerning solid or cystic mass or hydronephrosis. There is no suspicious small or large bowel dilatati on. Slight scoliotic curvature with multilevel spurring in the spine. Disc space narrowing and spurri ng right L4-L5 level is present. IMPRESSION: MRI findings consistent with continued resolving retroperitoneal hematoma. No concerning solid or cystic pancreatic mass identified.
== END | disposition home or self-care (01) ==
LOC: RADMRIMAIN 13:16
PROVIDERS: ATTEND Family Medicine
DX: K86.89 Other specified diseases of pancreas (principal); Z87.19 Personal history of other diseases of the digestive system
CPT/HCPCS: 74183; A9585

== ENCOUNTER → 2024-11-16 | Outpatient (CLI) | payer MEDICARE ==
[2024-11-16 08:22] LABS: African American GFR (CKD) >90 (>60 ml/min/1.73 sqM); Blood Urea Nitrogen 4 mg/dL (9-20); Non-African American GFR(CKD) >90 (>60 ml/min/1.73 sqM)
--- NOTE | 2024-11-16 09:55 | CT ---
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 CT DLP: 341.90 mGycm. Automated Exposure Control for Dose Reduction was Utilized. FINDINGS: Airway: Patent nasopharyngeal and oropharyngeal airway. Region of epiglottis and vallecula appears wi thin normal limits. There is asymmetric soft tissue density filling the right piriform sinus seen bes t coronal image 35 and axial image 46. Underlying mass or neoplasm at this level cannot be excluded. Further investigation with direct visualization and/or PET/CT is advised to exclude possible malignan cy. Parotid/submandibular glands: No gross abnormality seen. Carotid/Vascular Structures: Moderate to severe peripheral calcified plaque bilateral carotid bulb le florina extends into proximal internal carotid arteries without significant stenosis clearly seen bilater ally. Moderate to severe peripheral calcified plaque distal internal carotid arteries bilaterally. Osseous Structures: Grade 1 retrolisthesis C6 on C7. Slight grade 1 anterolisthesis C7 on T1. Moderat e to severe narrowing at C6-C7 level. Moderate disc space narrowing and spurring at C5-C6 level. Other: Suspicious right neck lymph node measuring 1.3 x 1.1 cm at level of the hyoid bone axial image 51. There is 1.6 x 1.4 cm ring-enhancing low dense lesion posterior cervical triangle at level of th e hyoid bone with a inferior wall calcification could reflect a necrotic lymph node axial image 49. There is moderate to severe wall thickening of the esophagus beginning near the level of the aortic a rch extending inferiorly to last axial image that warrants follow-up. IMPRESSION: 1. Asymmetric heterogeneous soft tissue filling the right piriform sinus. Cannot exclude underlying m alignant neoplasm. Advise direct visualization and PET/CT follow-up to further evaluate. There are bi lateral suspicious neck masses or lymph nodes thought present. These can be better evaluated with PET /CT. 2. Moderate to severe wall thickening of the partially visualized mid esophagus. Underlying neoplasm cannot be excluded. Further investigation with direct visualization is warranted. [facility], , 11/16/2024 9:53 AM
== END | disposition home or self-care (01) ==
LOC: RADCTMAIN 07:42
PROVIDERS: ATTEND Otolaryngology
DX: Z13.9 Encounter for screening, unspecified (principal); D38.0 Neoplasm of uncertain behavior of larynx; K22.89 Other specified disease of esophagus
CPT/HCPCS: 82565; 84520; 70491; Q9967